=== PATIENT | female | born 1985 | race Caucasian/White ===

== ENCOUNTER 2025-03-31 08:22 | Outpatient (CLI) | payer OTHER, SELFPAY ==
--- NOTE | ~2025-03-31 | MM_ITS ---
EXAMINATION: MM screening shahzad BI w manjula HISTORY: Screening TECHNIQUE: Craniocaudal and mediolateral oblique 3-D tomosynthesis images were obtained and synthetic 2-D images were generated. CAD analysis was submitted and interpreted. COMPARISON: Baseline BREAST PARENCHYMAL COMPOSITION: The breasts are heterogeneously dense, which may obscure small masses. FINDINGS: There is no evidence of suspicious mass, calcification, or architectural distortion to suggest malignancy in either breast. IMPRESSION: 1. No mammographic evidence of malignancy. 2. Recommend routine screening mammography in one year. BI-RADS Category 1: Negative Reviewed, dictated and finalized at location B.
--- OUTSIDE RECORDS SUMMARY | 2025-03-31 08:29 | XMS_ITS | Encounter Summary ---
Author Organization [facility] Address [address] [place] [address] Phone Care Team Providers Care Burning Plant Operator Name Role Phone Real Martin MD Unavailable [phone] Libra Leigh APRN, TUFTING MACHINE FIXER Primary Care P rovider Reason for Visit * Reason Comments Medication Refill Encounter Details Date Type Department Care Team (Late st Contact Info) Description 10/03/2023 Refill [facility] - Primary Care - [place] [address] [place] [address] Julian Sow PAC [address] [place] [address] Medication Refill Social History Tobacco Use Types Packs/Day Years Used Date Smoking Tobacco: Never Smokeless Tobacco: Never Alcohol Use Standard Drinks/Week Comments Yes 0 (1 standard drink = 0.6 oz pur e alcohol) Rare PHQ-2 Answer Date Recorded Total Score - Questions 1-9 7 07/14 Sexually Active Control Partners Comments Yes Pill Male Comments No Sex and Gender Information Value Date Recorded Sex Assigned at Female 09/23/2023 8:01 AM CDT Legal Sex Female 10:58 PM CDT Gender Identity Female 09/23/2023 8:01 AM CDT Sexual Orientation Not on file Occupation Industry Job Start Date Job End Date Self employed Not on file Not on file Not on file documented as of this encounter Miscellaneous Notes * Telephone Encounter - Elton Gonzalez RN - 10/05/2023 11:21 AM CDT Medication(s) refilled and signed per [facility] Chronic Medication Refill Standing Order for Pediatricand Adult Patients. Requested Prescriptions Pending Prescriptions Disp Refills FLUoxetine (PROZAC) 40 MG Capsule [Pharmacy Med Name: FLUOXETINE HCL 40 MG CAPSULE] 90 Capsule 1 Sig: TAKE 1 CAPSULE BY MOUTH EVERY DAY SSRI (6 Month Refill Only) Protocol Passed - 10/03/2023 7:02 AM Passed - No test in the past 12 months or most recent test was negative Passed - No active on record Passed - Visit with relevant provider in past 6 months or upcoming 90 days Recent Visits Date Type Provider Dept 09/10/23 Office Visit Libra Leigh APRN, TUFTING MACHINE FIXER [facility] Showing recent visits within past 182 days and meeting all other requirements Future Appointments No visits were found meeting these conditions. Showing future appointments within next 90 days and meeting all other requirements Passed - Patient has established therapy with SSRI for at least 6 months Passed - Has an encounter in the past 6 months with a depression, anxiety, adjustment disorder, OCD, or PTSD visit diagnosis documented in this encounter Plan of Treatment Upcoming Encounters Date Type Department Care Team (Late st Contact Info) Description 01/09/2026 11:15 AM CDT Office Visit [facility] - Primary Care - [place] [address] [place] [id number] Libra Leigh APRN, TUFTING MACHINE FIXER [address] [place] [address] documented as of this encounter Visit Diagnoses Not on filedocumented in this encounter Additional Health Concerns Infection Onset Date Last Indicated Resolved Time Respiratory Rule-Out 03/01/2025 03/01/2025 025 12:29 PM CDT Assessment Noted Time PHQ-9 Depression Total Score: 7 08/08/19 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
--- OUTSIDE RECORDS SUMMARY | 2025-03-31 08:29 | XMS_ITS | Clinical Summary ---
Author Organization [facility] Address [address] [place] [address] Phone Care Team Providers Care Order Builder Loader Name Role Phone Real Martin MD Unavailable [phone] Libra Leigh APRN, PATENT COUNSEL Primary Care P rovider Allergies No known active allergies Medications FLUoxetine (PROZAC) 40 MG Capsule TAKE 1 CAPSULE BY MOUTH EVERY DAY 90 Capsule 1 5 Active Drospirenone-Et hinyl Estradiol (Vestura) 3-0.02 MG Tablet Take 1 Tablet by mouth daily. Active [place]-3 Fatty Acids (FISH OIL PO) Take by mouth. Active BERBERINE CHLORIDE PO Take by mouth. Active buPROPion (WELLBUTRIN) 150 MG XL tabletIndicatio ns:Anxiety,Depr ession, unspecified depression type TAKE 1 TABLET BY MOUTH EVERY DAY IN THE MORNING 90 Tablet 3 5 Active buPROPion (WELLBUTRIN) 150 MG XL tabletIndicatio ns:Anxiety,Depr ession, unspecified depression type TAKE 1 TABLET BY MOUTH EVERY DAY IN THE MORNING 90 Tablet 1 5 025 Discontinued Active Problems Problem Noted Date Diagnosed Date Preventative health care (Adult) 01/05/2025 Constipation 12/23/2021 Bloating 12/23/2021 Elevated ferritin 01/18/2018 Anxiety 01/18/2018 Family history of breast cancer 01/18/2018 Overview (08/08/2021): Workup negative Resolved Problems Problem Noted Date Diagnosed Date Resolved Date Low hemoglobin 01/18/2018 08/08/2021 Encounters Date Type Department Care Team Description 03/10/2025 Refill [facility] [place] [address] [place] [address] Libra Leigh APRN, MAGDA Medication Refill 03/08/2025 Patient Outreach [facility] [place] [address] [place] [address] Libra Leigh APRN, MAGDA 03/01/2025 11:11 AM CDT - 03/01/2025 2:58 PM CDT Emergency [facility] Emergency [address] [place] [address] Nate Hoff MD Keen, Genesis Weaver APRN, PATENT COUNSEL Palpitations Discharge Disposition: Discharged to home or Selfcare 03/01/2025 9:15 AM CDT Urgent Care Visit [facility] [place] [address] [place] [phone] [facility] Heartburn (Primary Dx); Palpitations Discharge Disposition: Discharged to home or Selfcare 03/01/2025 Travel 03/01/2025 Nurse Triage [facility] [place] [address] [place] [address] Libra Leigh APRN, PATENT COUNSEL Fatigue 01/10/2025 8:40 AM CDT Lab [facility] [place] [address] [place] [phone] Preventative health care (Adult); Elevated ferritin Discharge Disposition: Discharged to home or Selfcare 01/10/2025 Results Follow-Up [facility] [place] [address] [place] [phone] Libra Leigh APRN, CNP CMP (COMPREHENSIVE METABOLIC PANEL), THYROID STIMULATING HORMONE (TSH), LIPID PANEL, Additional followed-up results: 2 01/10/2025 Travel 01/05/2025 3:45 PM CDT Office Visit [facility] - [place] [address] [place] [address] Libra Leigh APRN, CNP Preventative health care (Adult) (Primary Dx); Elevated ferritin; Anxiety Discharge Disposition: Discharged to home or Selfcare 01/05/2025 Travel from Last 3 Months Immunizations Immunization Administration Dates Next Due Covid-19, Mrna, Lnp-s, Pf, 3 0 Mcg/0.3 Ml Dose, Amrit-sucrose (Kincast niño top) 08/19/2021 Influenza Vaccine, Quadrivalent, PF 07/03/2021 Influenza, Injectable, Quadrivalent 04/23/2015 RHO(D) Immune Globulin- IV Or IM 09/26/2017,06/13 TDAP Vaccine 08/08/2021 Family History Medical History Relation Name Comments Anxiety disorder Father Ovarian Cancer Maternal Grandmother Breast Cancer Mother triple negativ e Alcohol Abuse Paternal Grandfather No Known Problems Paternal Grandmother Polycystic Ovarian Syndrome Sister 1 No Known Problems Sister 2 Relation Name Status Comments Father Alive Maternal Grandmother Mother Paternal Grandfather Paternal Grandmother Alive Sister 1 Alive Sister 2 Alive Social History Tobacco Use Types Packs/Day Years Used Date Smoking Tobacco: Never Smokeless Tobacco: Never Tobacco Cessation:Counseling Given: Not Answered Alcohol Use Standard Drinks/Week Comments Yes 1 (1 standard drink = 0.6 oz pur e alcohol) Rare PHQ-2 Answer Date Recorded Total Score - Questions 1-9 4 12/12 Social Connection and Isolation Panel Answer Date Recorded In a typical week, how many times do you talk on the phone with family, friends, or neighbors? More than three times a week 01/05/2025 How often do you get togethe r with friends or relatives? Once a week 01/05/2025 How often do you attend up health system or jew services? Never 01/05/2025 Do you belong to any clubs o r organizations such as voodoo groups, unions, fraternal or athletic groups, or school groups? No 01/05/2025 How often do you attend meet ings of the clubs or organizations you belong to? Never 01/05/2025 Are you , , di vorced, , never , or living with a partner? 01/05/2025 AUDIT-C Answer Date Recorded Q1: How often do you have a drink containing alc ohol? 2-4 times a month 01/05/2025 Q2: How many drinks containi ng alcohol do you have on a typical day when you are drinking? 1 or 2 01/05/2025 Q3: How often do you have si x or more drinks on one occasion? Less than monthly 01/05/2025 Overall Financial Resource Strain (CARDIA) Answe r Date Recorded How hard is it for you to pa y for the very basics like food, housing, medical care, and heating? Not very hard 01/05/2025 [facility] - Occupational Stress Questionnaire Answer Date Recorded Do you feel stress - tense, restless, nervous, or anxious, or unable to sleep at night because your mind is troubled all the time - these days? To some extent 01/05/2025 Exercise Vital Sign Answer Date Recorde d On average, how many days pe r week do you engage in moderate to strenuous exercise (like a brisk walk)? 1 day 01/05/2025 On average, how many minutes do you engage in exercise at this level? 20 min 01/05/2025 Hunger Vital Sign Answer Date Recorded Within the past 12 months, y ou worried that your food would run out before you got the money to buy more. Never true 01/06/20 25 Within the past 12 months, t he food you bought just didn't last and you didn't have money to get more. Never true 01/05/2025 PRAPARE - Transportation Answer Date Re corded In the past 12 months, has l ack of transportation kept you from medical appointments or from getting medications? No 12/12 In the past 12 months, has l ack of transportation kept you from meetings, work, or from getting things needed for daily living? No 01/05/2025 Housing Stability Vital Sign Answer Edgardo e Recorded In the last 12 months, was t here a time when you were not able to pay the mortgage or rent on time? No 01/05/2025 In the past 12 months, how m any times have you moved where you were living? 0 01/05/2025 At any time in the past 12 m [facility], were you homeless or living in a intermediate (including now)? No 01/05/2025 [facility] Utilities Answer Date Recorded In the past 12 months has [facility] [employer], gas, oil, or water company threatened to shut off services in your home? No 01/05/2025 Sexually Active Control Partners Comments Yes Pill Male Comments No Sex and Gender Information Value Date Recorded Sex Assigned at Female 09/23/2023 8:01 AM CDT Legal Sex Female 10:58 PM CDT Gender Identity Female 09/23/2023 8:01 AM CDT Sexual Orientation Not on file Occupation Industry Job Start Date Job End Date Self employed Not on file Not on file Not on file Last Filed Vital Signs Vital Sign Reading Time Taken Comments Blood Pressure 133/76 03/01/2025 2:30 PM CDT Pulse 85 03/01/2025 2:45 PM CDT Temperature 36.4 C (97.6 F) 03/01/2025 11:22 AM CDT Respiratory Rate 18 03/01/2025 2:45 PM CDT Oxygen Saturation 97% 03/01/2025 2:45 PM CDT Inhaled Oxygen Concentration - - Weight 69.4 kg (153 lb) 03/01/2025 11:22 AM CDT Height 157.5 cm (5' 2) 03/01/2025 11:22 AM CDT Body Mass Index 27.98 03/01/2025 11:22 AM CDT Plan of Treatment Upcoming Encounters Date Type Department Care Team (Late st Contact Info) Description 01/09/2026 11:15 AM CDT Office Visit [facility] - [place] [address] [place] [address] Libra Leigh APRN, PATENT COUNSEL [address] [place] [address] Health Maintenance Due Date Last Done Comments Human Papillomavirus (HPV) Immunization (1 - 3-dose SCDM series) 2012 HPV/Cotest 10/01/2015 Cervical Cancer Screening (CCS) 07/03/2024 Pap Smear 07/03/2024 07/03/2021 Influenza Immunization (#1) 03/13/20252 08/2020, 04/23/2015 SARS-COV-2 Immunization ( season) 2025 08/19/2021, 11/09/2020, 10/12/2020 Td Immunization Every 10 Yea rs (Adults With 1 Tdap) 08/08/2031 08/08/2021 Respiratory Syncytial Virus (RSV) Immunization (Adult) (1 - 1-dose 75+ series) 2060 Hepatitis C Virus (HCV) Screening Completed 09/16/2023 Hepatitis B Immunization Discontinued Meningococcal Immunization (ACWY) Aged Out No longer eligible based on patient's age to complete this topic Pneumococcal Immunization Combined Aged Out No longer eligible based on patient's age to complete this topic Rotavirus Immunization Aged Out No lo nger eligible based on patient's age to complete this topic Procedures Procedure Name Priority Date/Time Associated Diagnosis Comments TROPONIN I, HIGH SENSITIVITY (HSTRP) STAT 03/01/2025 1:45 PM CDT XR CHEST SINGLE VIEW PORTABLE STAT 03/01/2025 12:03 PM CDT URINALYSIS REFLEX IF INDICATED BY ABNORMAL RESULTS STAT 03/01/2025 11:35 AM CDT RSV,SARS-COV-2,INFLUE NZA A&B BY PCR STAT 03/01/2025 11:30 AM CDT GOLD TOP TUBE STAT 03/01/2025 11:25 AM CDT CBC WITH AUTO DIFFERENTIAL STAT 03/01/2025 11:25 AM CDT EXTRA TUBES STAT 03/01/2025 11:25 AM CDT D-DIMER STAT 03/01/2025 11:25 AM CDT N-TERMINAL- PRO B TYPE NATRIURETIC PEPTIDE STAT 03/01/2025 11:25 AM CDT TROPONIN I, HIGH SENSITIVITY (HSTRP) STAT 03/01/2025 11:25 AM CDT LIPASE STAT 03/01/2025 11:25 AM CDT CMP (COMPREHENSIVE METABOLIC PANEL) STAT 03/01/2025 11:25 AM CDT COMPLETE BLOOD COUNT (CBC) WITH DIFF STAT 03/01/2025 11:25 AM CDT EKG 12 LEAD STAT 03/01/2025 11:09 AM CDT RHYTHM STRIP 03/01/2025 12:00 AM CDT EKG SCAN 03/01/2025 12:00 AM CDT CBC WITH AUTO DIFFERENTIAL Routine 01/10/2025 8:42 AM CDT Preventative health care (Adult) FERRITIN Routine 01/10/2025 8:42 AM CDT Elevated ferritin LIPID PANEL Routine 01/10/2025 8:42 AM CDT Preventative health care (Adult) THYROID STIMULATING HORMONE (TSH) Routine 01/10/2025 8:42 AM CDT Preventative health care (Adult) CMP (COMPREHENSIVE METABOLIC PANEL) Routine 01/10/2025 8:42 AM CDT Preventative health care (Adult) COMPLETE BLOOD COUNT (CBC) WITH DIFF Routine 01/10/2025 8:42 AM CDT Preventative health care (Adult) HEPATITIS C ANTIBODY Routine 09/16/2023 8:19 AM 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 TROPONIN I, HIGH SENSITIVITY- [place]ES <2.7 <=14.0 ng/L 03/01/2025 2:14 PM CDT [facility] Comment: High-sensitivity troponin I results are reported in ng/L making the result appear to be 1,000 times higher than the contemporary troponin I value which is reported in ng/ml. Results from [place]. Blood Venipuncture / Unknown 03/01/2025 1:45 PM CDT 03/01/2025 1:50 PM CDT us Genesis Valenzuela APRN, MAGDA CHEMISTRY ORDERABL ES Final Result [facility] [place] [address] * XR CHEST SINGLE VIEW PORTABLE (03/01/2025 12:03 PM CDT) Anatomical Region Laterality Modality Chest N/A Digital Radiogra phy 03/01/2025 12:3 0 PM CDT Impressions 03/01/2025 12:33 PM CDT IMPRESSION: No acute cardiopulmonary process. Narrative 03/01/2025 12:33 PM CDT EXAM DESCRIPTION: XR CHEST SINGLE VIEW PORTABLE REASON FOR STUDY: Cardiac palpitations, shortness of breath, and syncope of unspecified duration. TECHNIQUE: Single frontal radiographic view(s) of the chest. COMPARISON: Prior chest imaging available at time of interpretation. FINDINGS: LUNGS: No focal consolidation. No pleural effusion. No pneumothorax. HEART/MEDIASTINUM: Trachea midline. Heart normal in size and contour. Hilar and mediastinal structures unremarkable. LINES/TUBES: None. BONES: No acute osseous abnormality. THIS IS AN ELECTRONICALLY VERIFIED FINAL REPORT 03/01/2025 12:30 PM - Electronically signed by Horace Aragon M.D. HEATHER: HEATHER Report ID: [id number] Reading Location: [id number] Procedure Note Horace Aragon MD - 03/01/2025 EXAM DESCRIPTION: XR CHEST SINGLE VIEW PORTABLE REASON FOR STUDY: Cardiac palpitations, shortness of breath, and syncope of unspecified duration. TECHNIQUE: Single frontal radiographic view(s) of the chest. COMPARISON: Prior chest imaging available at time of interpretation. FINDINGS: LUNGS: No focal consolidation. No pleural effusion. No pneumothorax. HEART/MEDIASTINUM: Trachea midline. Heart normal in size and contour. Hilar and mediastinal structures unremarkable. LINES/TUBES: None. BONES: No acute osseous abnormality. THIS IS AN ELECTRONICALLY VERIFIED FINAL REPORT 03/01/2025 12:30 PM - Electronically signed by Horace Aragon M.D. HEATHER: HEATHER Report ID: [id number] Reading Location: [id number] IMPRESSION: No acute cardiopulmonary process. Genesis Valenzuela APRN, CNP IMG DIAGNOSTIC ORD ERABLES Final Result * (ABNORMAL) Urinalysis w/ Reflex (03/01/2025 11:35 AM CDT) SPECIFIC GRAVITY 1.020 1.003 - 1.030 03/01/2025 12:16 PM CDT [facility] URINE PH 6.0 5.0 - 9.0 03/01/2025 12:16 PM CDT [facility] WBC ESTERASE 25 /ul(A) Negative 03/01/2025 12:16 PM CDT [facility] NITRITE Negative Negative 03/01/2025 12:16 PM CDT [facility] PROTEIN, RANDOM URINE 30 mg/dL(A) Negative 03/01/2025 12:16 PM CDT [facility] URINE GLUCOSE, QUAL Negative Negative 03/01/2025 12:16 PM CDT [facility] URINE KETONES Negative Negative 03/01/2025 12:16 PM CDT [facility] UROBILINOGEN Normal Normal mg/dL 03/01/2025 12:16 PM CDT [facility] URINE BLOOD 10 /uL(A) Negative yvonne/ul 03/01/2025 12:16 PM CDT [facility] URINALYSIS COLOR Yellow 03/01/20 12:16 PM CDT [facility] URINALYSIS CLARITY Clear 03/01/2025 12:16 PM CDT [facility] WBC (Urine) 0-5 Negative, 0-5 /hpf 03/01/2025 12:16 PM CDT [facility] URINE RBC'S 3-5(A) Negative, 0-2 /hpf 03/01/2025 12:16 PM CDT [facility] EPITHELIAL CELLS Large amount squamous /lpf 03/01/2025 12:16 PM CDT [facility] BACTERIA, URINE Few(A) Negative /hpf 03/01/2025 12:16 PM CDT [facility] Urine URINE SPECIMEN / Unknown Non-Phlebotomy Collection / Unknown 03/01/2025 11:35 AM CDT 03/01/2025 11:48 AM CDT us Genesis Valenzuela APRN, PATENT COUNSEL URINE ORDERABLES F inal Result [facility] [place] [address] * JAIME-COV-2 Flu RSV - (Quad PCR) (03/01/2025 11:30 AM CDT) FLU A Negative Negative, Error 03/01/2025 12:29 PM CDT [facility] FLU B Negative Negative 03/01/2025 12:29 PM CDT [facility] RESP SYNC VIRUS Negative Negative 12:29 PM CDT [facility] SARSCOV2 NOT DETECTED (Reference Range for this test is Not Detected) 03/01/2025 12:29 PM CDT [facility] Comment:This test was perfor med by a Reverse Scouring Pads Supervisor PCR Method. Nasopharyngeal NASOPHARYNGEAL SWAB / Unknown Non-Phlebotomy Collection / Unknown 03/01/2025 11:30 AM CDT 03/01/2025 11:46 AM CDT Genesis Valenzuela APRN, CNP MICROBIOLOGY - GEN ERAL ORDERABLES Final Result Performing Organization Address City/[facility]/ZIP Co de Phone Number [facility] [address] [place] [address] * NT-proBNP (03/01/2025 11:25 AM CDT) NT PROBNP 85.5 <450.0 pg/mL 03/01/2025 12:37 PM CDT [facility] Comment: AGE pg/mL INTERPRETATION All <300 Negative: HF (Heart Failure) unlikely 18 to <50 >=300.0 to <450.0 Indeterminate. Consider other causes of NT-proBNP elevation 50 to 75 >=300.0 to <900.0 Indeterminate. Consider other causes of NT-proBNP elevation >75 >=300.0 to <1800.0 Indeterminate. Consider other causes of NT-proBNP elevation 18 to <50 >=450.0 Positive: HF likely 50 to 75 >=900.0 Positive: HF likely >75 >=1800.0 Positive: HF likely Total protein levels at or above 12.6 mg/dl may falsely decrease NT-proBNP values. Blood Venipuncture / Unknown 03/01/2025 11:25 AM CDT 03/01/2025 11:46 AM CDT us Genesis Valenzuela APRN, CNP CHEMISTRY ORDERABL ES Final Result [facility] [address] [place] [address] * Gold Top Tube (03/01/2025 11:25 AM CDT) Blood No Phlebotomy Charged / Unknown 03/01/2025 11:25 AM CDT 03/01/2025 11:47 AM CDT us Genesis Valenzuela APRN, CNP CHEMISTRY ORDERABL ES Final Result [facility] [address] [place] [address] * (ABNORMAL) CBC with Auto Differential (03/01/2025 11:25 AM CDT) Only the most recent of2 resultswithin the time period is included. WBC 12.81(H) 4.00 - 12.00 10(3)/mcL 03/01/2025 11:53 AM CDT [facility] RBC 4.14 3.80 - 5.30 10(6)/mcL 03/01/2025 11:53 AM CDT [facility] HEMOGLOBIN (HGB) 12.1 12.0 - 15.8 g/dL 03/01/2025 11:53 AM CDT [facility] HEMATOCRIT (HCT) 35.6(L) 36.0 - 47.0 % 03/01/2025 11:53 AM CDT [facility] MCV 86.0 82.0 - 96.0 fL 03/01/2025 11:53 AM CDT [facility] MCH 29.2 26.0 - 34.0 pg 03/01/2025 11:53 AM CDT [facility] MCHC 34.0 31.0 - 36.0 g/dL 03/01/2025 11:53 AM CDT [facility] PLATELET COUNT 313 140 - 440 10(3)/mcL 03/01/2025 11:53 AM CDT [facility] RDW 12.0 11.8 - 15.5 % 03/01/2025 11:53 AM CDT [facility] MPV 9.5(L) 9.7 - 12.4 fL 03/01/2025 11:53 AM CDT [facility] NEUTROPHILS 84.7(H) 47.0 - 73.0 % 03/01/2025 11:53 [facility] LYMPHOC[facility]TES 8.0(L) 18.0 - 42.0 % 03/01/2025 11:53 AM [facility] MONOCYTES 5.5 4.0 - 12.0 % 03/01/2025 11:53 AM [facility] EOSINOPHILS 0.8 0.0 - 5.0 % 03/01/2025 11:53 AM CDT [facility] BASOPHILS 0.5 0.0 - 1.0 % 03/01/2025 11:53 AM [facility] IMMATURE GRANULOCYTE 0.5(H) 0.0 - 0.4 % 03/01/2025 11:53 AM [facility] Comment:Immature Granulocyte s includes Metamyelocytes, Myelocytes, and Promyelocytes. ABSOLUTE NEUTROPHILS 10.87(H) 1.60 - 7.70 10(3)/mcL 03/01/2025 11:53 AM [facility] ABSOLUTE LYMPHOCYTES 1.02(L) 1.30 - 3.20 10(3)/[facility] 03/01/2025 11:53 AM [facility] ABSOLUTE MONOCYTES 0.70 0.20 - 1.00 10(3)/[facility] 03/01/2025 11:53 AM [facility] ABSOLUTE EOSINOPHIL 0.10 0.00 - 0.40 10(3)/[facility] 03/01/2025 11:53 AM [facility] ABSOLUTE BASOPHILS 0.06 0.00 - 0.10 10(3)/[facility] 03/01/2025 11:53 AM [facility] ABSOLUTE IMMATURE GRANULOCYTE 0.06(H) 0.00 - 0.03 10 (3) mcL. 03/01/2025 11:53 AM [facility] NRBC PER 100 WBC 0 03/01/20 11:53 AM [facility] Blood Venipuncture / Unknown 03/01/2025 11:25 AM CDT 03/01/2025 11:46 AM CDT us Genesis Valenzuela APRN, CNP HEMATOLOGY ORDERAB LES Final Result Performing Organization Address [facility] [place]/[facility] Co de Phone Number [facility] [address] [place] [address] * Lipase (03/01/2025 11:25 AM CDT) LIPASE 16 8 - 78 U/L 03/01/2025 12:32 PM CDT [facility] Blood Venipuncture / Unknown 03/01/2025 11:25 AM CDT 03/01/2025 11:46 AM CDT us Genesis Valenzuela APRN, CNP CHEMISTRY ORDERABL ES Final Result Performing Organization Address [facility] de Phone Number [facility] [address] [place] [address] * D-Dimer (03/01/2025 11:25 AM CDT) D DIMER 0.33 <0.50 mcg/mL FEU 03/01/2025 12:09 PM CDT [facility] Blood Venipuncture / Unknown 03/01/2025 11:25 AM CDT 03/01/2025 11:46 AM CDT Narrative [facility] - 03/01/2025 12:09 PM CDT The FDA has approved this method to exclude the diagnosis of DVT and/or PE at the cutoff value of <0.50 mcg/mL FEU. us Genesis Valenzuela APRN, CNP HEMATOLOGY ORDERAB LES Final Result Performing Organization Address [facility] [place]/[facility] Co de Phone Number [facility] [address] [place] [address] * (ABNORMAL) CMP (03/01/2025 11:25 AM CDT) Only the most recent of2 resultswithin the time period is included. SODIUM 138 136 - 145 mmol/L 03/01/2025 12:32 PM CDT [facility] POTASSIUM 3.9 3.5 - 5.1 mmol/L 03/01/2025 12:32 PM CDT [facility] CHLORIDE 105 98 - 107 mmol/L 03/01/2025 12:32 PM CDT [facility] CO2, VENOUS 22 22 - 30 mmol/L 03/01/2025 12:32 PM CDT [facility] ANION GAP 14.9 <18.0 mmol/L 03/01/2025 12:32 PM CDT [facility] GLUCOSE 145(H) 70 - 99 mg/dL 03/01/2025 12:32 PM CDT [facility] BUN 12 5 - 18 mg/dL 03/01/2025 12:32 PM CDT [facility] CREATININE, BLOOD 0.83 0.60 - 1.00 mg/dL 03/01/2025 12:32 PM CDT [facility] BUN/CREATININE RATIO 14 12 - 20 ratio 03/01/2025 12:32 PM CDT [facility] TOTAL PROTEIN 7.8 6.0 - 8.0 g/dL 03/01/2025 12:32 PM CDT [facility] ALBUMIN 4.4 3.5 - 5.0 g/dL 03/01/2025 12:32 PM CDT [facility] A/G RATIO 1.3 1.0 - 2.2 03/01/2025 12:32 PM CDT [facility] CALCIUM 9.0 8.7 - 10.5 mg/dL 03/01/2025 12:32 PM CDT [facility] T BILI 0.3 0.2 - 1.2 mg/dL 03/01/2025 12:32 PM CDT [facility] SGOT (AST) 13 <43 U/L 03/01/2025 12:32 PM CDT [facility] SGPT (ALT) 10 <56 U/L 03/01/2025 12:32 PM CDT [facility] ALKALINE PHOSPHATASE 68 40 - 150 U/L 03/01/2025 12:32 PM CDT [facility] GFR, ESTIMATED >60 >=60 03/01/2025 12:32 PM CDT [facility] Comment: Creatinine Clearance is the preferred criteria for selecting drug dose adjustments in renally impaired patients. The GFR is provided as additional pertinent clinical information. GFR is reported in mL/min/1.73 sq m. Calculation based on the 2020 Chronic Kidney Disease Epidemiology Collaboration (CKD-EPI) equation refit without adjustment for race. GFR, EST. >60 >=60 12:32 PM CDT [facility] Comment: Creatinine Clearance is the preferred criteria for selecting drug dose adjustments in renally impaired patients. The GFR is provided as additional pertinent clinical information. GFR is reported in mL/min/1.73 sq m. Calculation based on the 2009 Chronic Kidney Disease Epidemiology Collaboration (CKD-EPI). GFR, EST. NONAFRICAN >60 >=60 03/01/2025 12:32 PM CDT [facility] Comment: Creatinine Clearance is the preferred criteria for selecting drug dose adjustments in renally impaired patients. The GFR is provided as additional pertinent clinical information. GFR is reported in mL/min/1.73 sq m. Calculation based on the 2009 Chronic Kidney Disease Epidemiology Collaboration (CKD-EPI). Blood Venipuncture / Unknown 03/01/2025 11:25 AM CDT 03/01/2025 11:46 AM CDT us Genesis Valenzuela APRN, PATENT COUNSEL CHEMISTRY ORDERABL ES Final Result [facility] [place] [address] * EKG 12 LEAD (03/01/2025 11:09 AM CDT) Ventricular Rate 96 BPM EXTERNAL EKG Atrial Rate 96 BPM EXTERNAL EKG P-R Interval 138 ms EXTERNAL EKG QRS Duration 76 ms EXTERNAL EKG Q-T Duration 366 ms EXTERNAL EKG QTC CALCULATION 462 ms EXTERNAL EKG P [place] 48 degrees EXTERNAL EKG R [place] 23 degrees EXTERNAL EKG T [place] 18 degrees EXTERNAL EKG 03/01/2025 11:0 9 AM CDT Impressions EXTERNAL EKG - 03/02/2025 5:16 PM CDT Normal sinus rhythm Normal ECG No previous ECGs available Confirmed by ARMANDO YU ([id number]) on 03/02/2025 5:16:46 PM Narrative Procedure Note Armando Yu MD - 03/02/2025 IMPRESSION: Normal sinus rhythm Normal ECG No previous ECGs available Confirmed by ARMANDO YU ([id number]) on 03/02/2025 5:16:46 PM us Nate Hoff MD IMG ECG ORDERABLES Final Result Performing Organization Address City/[facility] Co de Phone Number EXTERNAL EKG * RHYTHM STRIP (03/01/2025 12:00 AM CDT) 03/01/2025 Provider Scan IMG ECG ORDERABLES Final Result Performing Organization Address City/[facility] Co de Phone Number RESULTING AGENCY * EKG SCAN (03/01/2025 12:00 AM CDT) 03/01/2025 us Provider Scan IMG ECG ORDERABLES Final Result Performing Organization Address City/[facility] Co de Phone Number RESULTING AGENCY * THYROID STIMULATING HORMONE (TSH) (01/10/2025 8:42 AM CDT) TSH 1.459 0.300 - 5.000 mIU/L 01/10/2025 1:36 PM CDT [facility] Blood Venipuncture / Unknown 01/10/2025 8:42 AM CDT 01/10/2025 8:42 AM CDT us Libra Leigh APRN, PATENT COUNSEL CHEMISTRY ORDER DAVID Final Result [facility] [place] [address] * (ABNORMAL) LIPID PANEL (01/10/2025 8:42 AM CDT) CHOLESTEROL 204(H) <200 mg/dL 01/10/2025 1:20 PM CDT [facility] TRIGLYCERIDES 355(H) <150 mg/dL 01/10/2025 1:20 PM CDT [facility] HDL CHOLESTEROL 54 >40 mg/dL 1:20 PM CDT [facility] LDL 79 <130 mg/dL 01/10/2025 1:20 PM CDT [facility] VLDL 71(H) 10 - 50 mg/dL 01/10/2025 1:20 PM CDT [facility] CHOL/HDL RATIO 3.8 0.0 - 4.4 01/10/2025 1:20 PM CDT [facility] NON-HDL CHOLESTEROL 150(H) <130 mg/dL 01/10/2025 1:20 PM CDT [facility] IS THE PATIENT REQUIRED TO BE FASTING? Yes 01/10/2025 1:20 PM CDT [facility] HAS THE PATIENT BEEN FASTING? Yes 01/10/2025 1:20 PM CDT [facility] Blood Venipuncture / Unknown 01/10/2025 8:42 AM CDT 01/10/2025 8:42 AM CDT us Libra Leigh APRN, MAGDA CHEMISTRY ORDER DAVID Final Result [facility] [place] [address] * FERRITIN (01/10/2025 8:42 AM CDT) FERRITIN 172 5 - 204 ng/mL 01/10/2025 1:36 PM CDT [facility] Blood Venipuncture / Unknown 01/10/2025 8:42 AM CDT 01/10/2025 8:42 AM CDT us Libra Leigh APRN, PATENT COUNSEL CHEMISTRY ORDER DAVID Final Result [facility] [place] [address] * HEPATITIS C ANTIBODY (09/16/2023 8:19 AM METEOROLOGY FACULTY MEMBER) hepatitis C antibody 0.08 <1 S/[facility] ARCH [id number] 09/17/2023 1:03 AM METEOROLOGY FACULTY MEMBER [facility] Comment: Signal/Cutoff ratio < 0.79 is Nondetected Signal/Cutoff ratio 0.80-0.99 is Grayzone Signal/Cutoff ratio > 0.99 is Detected Supplemental assays are recommended if signal/cutoff ratio is >/=1.00. Signal/cutoff ratio result >/= 5.00 is 97% predictive of positivity for recombinant immunoblot assay (RIBA) and will be reported to the [place] [facility] Public [facility] as required. Blood Venipuncture / Unknown 09/16/2023 8:19 AM METEOROLOGY FACULTY MEMBER 09/16/2023 8:19 AM METEOROLOGY FACULTY MEMBER us Libra Leigh APRN, PATENT COUNSEL CHEMISTRY ORDER DAVID Final Result [facility] [address] [place] [address], from Last 3 Months or Most Recently Relevant to Health Maintenance Insurance [facility] Care Teams Order Builder Loader Relationship Specialty Start Date End Date Libra Leigh APRN, PATENT COUNSEL [address] [place] [address] PCP - General Advanced Practice Nurse 08/08/21 Real Martin MD [address] [place] [address] Consulting Physician Obstetrics & Gynecology 01/18/18
--- OUTSIDE RECORDS SUMMARY | 2025-03-31 08:29 | XMS_ITS | Clinical Summary ---
Author Organization [address] Address [address] [place] [id number] Care Team Providers Care Java J2Ee Application Developer Name Role Phone Meliton Pavon MD Primary Care Provider [phone] Allergies No known active allergies Medications PNV 39-iron [id number] a 30 mg iron-1.2 mg-55 mg-265 mg capsule Take by mouth daily. Active LACTOBAC NO.41/BIFIDOBACT NO.7 (PROBIOTIC-10 ORAL) Take by mouth. Active buPROPion XL (WELLBUTRIN XL) 150 mg 24 hr tablet Take 150 mg by mouth daily 10 05/13/2019 Active ferrous sulfate 325 mg (65 mg of elemental iron) tablet Take by mouth Active norethindrone ac-eth estradiol (JUNE, ORAL) Take by mouth Active FLUoxetine (FLUoxetine) 10 mg tablet/capsule Take 10 mg by mouth daily Active Active Problems Problem Noted Date Diagnosed Date Acute recurrent sinusitis 01/10/2016 Overview (10/18/2016): Acute recurrent sinusitis, unspecified location Immunizations Immunization Administration Dates Next Due Influenza, Quadrivalent, Split, Intramuscular Surgical History Surgery Date Site/Laterality Comments APPENDECTOMY Appendectomy DILATION AND CURETTAGE OF UTERUS 09/10/2016 - 10/10/2016 COLONOSCOPY 07/13/2005 - 07/12/2006 Medical History Medical History Date Comments Anxiety disorder 2007 Anxiety; Commen ts: OAC 10/17/2014 - Heart valve disease Heart valve disorder; Comments: OAC 10/17/2014 - MVP Gestational diabetes mellitus (GDM) Gestational diabetes; Comments: OAC 10/17/2014 - Family History Medical History Relation Name Comments Colon cancer Maternal Grandfather Cancer, colon; Ovarian cancer Maternal Grandmother Cance r, ovarian; Breast cancer Mother Cancer, breast ; Relation Name Status Comments Maternal Grandfather Maternal Grandmother Mother Social History Tobacco Use Types Packs/Day Years Used Date Smoking Tobacco: Never Smokeless Tobacco: Never Alcohol Use Standard Drinks/Week Comments No 0 (1 standard drink = 0.6 oz pur e alcohol) Personal Safety Answer Date Recorded Getting School Help Needed Not on file 09/26 Comments Unknown Sex and Gender Information Value Date Recorded Sex Assigned at Not on file Legal Sex Female 3:23 AM SOCIAL PSYCHOLOGIST Gender Identity Not on file Sexual Orientation Not on file Obstetrics History Para Term AB IAB SAB Ectopic Multiple Livin g Live Births 1 Date Outcome GA Total Labor Labor/2nd/3rd Weight Sex Type Anes PTL Veronica A1 A5 Name Clin Last Filed Vital Signs Vital Sign Reading Time Taken Comments Blood Pressure 110/66 06/12/2019 8:46 AM SOCIAL PSYCHOLOGIST Pulse 88 06/12/2019 8:46 AM SOCIAL PSYCHOLOGIST Temperature 37.1 C (98.8 F) 06/12/2019 8:46 AM SOCIAL PSYCHOLOGIST Respiratory Rate 20 06/12/2019 8:46 AM SOCIAL PSYCHOLOGIST Oxygen Saturation 98% 06/12/2019 8:46 AM SOCIAL PSYCHOLOGIST Inhaled Oxygen Concentration - - Weight 64 kg (141 lb) 06/12/2019 8:46 AM SOCIAL PSYCHOLOGIST Height 158.8 cm (5' 2.5) 06/12/2019 8:46 AM SOCIAL PSYCHOLOGIST Body Mass Index 25.38 06/12/2019 8:46 AM SOCIAL PSYCHOLOGIST Plan of Treatment Not on file Insurance [facility] [employer] H[employer]/PPO Address: [address] [address] [place] [address] [facility] [employer]PPO Address: [place] [address] Care Teams Java J2Ee Application Developer Relationship Specialty Start Date End Date Meliton Pavon MD PCP - General 01/10/16
--- OUTSIDE RECORDS SUMMARY | 2025-03-31 08:29 | XMS_ITS | Encounter Summary ---
Author Organization [facility] Address [address] [place] [address] Phone Care Team Providers Care Technology Administrator Name Role Phone Real Martin MD Unavailable [phone] Libra Leigh APRN, BONE CHAR KILN OPERATOR Primary Care P rovider Reason for Visit * Reason Comments Medication Refill Encounter Details Date Type Department Care Team (Late st Contact Info) Description 11/08/2021 Refill [facility] - [facility] Care - [place] [address] [place] [address] Libra Leigh APRN, BONE CHAR KILN OPERATOR [address] [place] [address] Medication Refill Social History Tobacco Use Types [...] encounter Miscellaneous Notes * Telephone Encounter - Teri Johnson RN - 11/08/2021 7:48 AM CDT Medication approved and signed per standing order protocol. documented in this encounter Plan of Treatment Upcoming Encounters Date Type Department Care Team (Late st Contact Info) Description 01/09/2026 11:15 AM CDT Office Visit [facility] - [facility] Care - [place] [address] [place] [address] Libra Leigh APRN, BONE CHAR KILN OPERATOR [address] [place] [address] documented as of this encounter Visit Diagnoses Diagnosis Anxiety Anxiety state, unspecified documented in this encounter Additional Health Concerns Infection Onset Date Last Indicated Resolved Time Respiratory Rule-Out 03/01/2025 03/01/2025 025 12:29 PM CDT Assessment Noted Time PHQ-9 Depression Total Score: 7 08/08/19 22 9:00 AM MEDICATION CARE MANAGER documented as of this encounter Care Teams Technology Administrator Relationship Specialty Start Date End Date Libra Leigh APRN, BONE CHAR KILN OPERATOR [address] [place] [address] PCP - General Advanced Practice Nurse 08/08/21 Real Martin MD [address] [place] [address] Consulting Physician Obstetrics & Gynecology 01/18/18 documented as of this encounter
== END 2025-03-31 08:23 | disposition home or self-care (01) ==
PROVIDERS: Visit Provider Obstetrics & Gynecology
DX: Z12.31 Encounter for screening mammogram for malignant neoplasm of breast (principal)
CPT/HCPCS: 77063; 77067